=== PATIENT | male | born 1975 | race Caucasian/White ===

== ENCOUNTER 2021-09-21 12:56 | Emergency (ER) | payer BC, SELFPAY ==
--- NOTE | ~2021-09-21 | XR_ITS ---
XR tibia fibula LT 2V DATE: 09/21/2021 13:30 INDICATION: Left ankle laceration; evaluate for foreign body. TECHNIQUE: AP and lateral views COMPARISON: None FINDINGS: Distal lateral lower leg soft tissue laceration, with evidence of a faint approximately 1 x 3 mm radiopaque possible foreign body noted on AP view, not definitely localized on the lateral view , possibly due to superimposed bony structures. No fracture or dislocation, periosteal reaction or bone destruction. Minimal periarticular spurring of the patella. IMPRESSION: Distal lateral lower leg soft tissue laceration with possible minimally radiopaque approx imate 1 x 3 mm foreign body Reviewed, dictated and finalized at location A. IMPRESSION: Distal lateral lower leg soft tissue laceration with possible minim ally radiopaque approximate 1 x 3 mm foreign body
--- NOTE | ~2021-09-21 | XR_ITS ---
EXAM: XR ankle LT 2V DATE: 09/21/2021 16:46 HISTORY: irrigated laceration, r/o persistent FB . COMPARISON: Same date at 1:55 PM. FINDINGS/IMPRESSION: Soft tissue foreign body no longer visualized. No other interval change. Reviewed, dictated and finalized at location K.
--- NOTE | ~2021-09-21 | XR_ITS ---
XR ankle LT min 3V DATE: 09/21/2021 14:03 INDICATION: Left ankle laceration TECHNIQUE: 4 views COMPARISON: None FINDINGS: There is a soft tissue laceration at the distal lateral lower leg with an approximately 0.7 x 2 mm radiopaque foreign body. No fracture or dislocation of the ankle or disruption of the ankle mortise. No periosteal reaction or bone destruction. IMPRESSION: Soft tissue laceration and radiopaque foreign body of distal lateral lower leg Reviewed, dictated and finalized at location A. IMPRESSION: Soft tissue laceration and radiopaque foreign body of distal latera l lower leg
[2021-09-21 13:02] VITALS: BP 144/83; PULSE 103; RESP 18; TEMP 36.6; O2SAT 98
[2021-09-21 13:30] VITALS: BP 126/83; PULSE 83; RESP 16; O2SAT 97
--- NOTE | 2021-09-21 14:28 | ED.WOUNDLAC ---
HPI - Wound/Laceration General Chief Complaint: Wound/Laceration Stated Complaint: laceration to leg Time Seen by Provider: 09/21/21 13:44 Source: patient Mode of arrival: ambulatory Limitations: no limitations History of Present Illness HPI narrative: Patient is a 46 y/o male who presents to the ED with c/o laceration to his left lower leg. Patient reports he was helping a friend move some gym equipment when a glass mirror broke and a piece cut his left lower lateral leg. He sustained a large deep laceration. A few minor abrasions elsewhere, but no other injuries. No reported numbness/tingling, weakness. Able to ambulate but has pain with this. Tetanus status up-to-date. Related Data Allergies Allergy/AdvReac Type Severity Reaction Status Date / Time Penicillins Allergy Rash Verified 09/21/21 13:01 Review of Systems Review of Systems: CONSTITUTIONAL: Denies fever. SKIN: Reports laceration to L lower leg. NEUROLOGIC: Denies tingling, numbness, or weakness. All systems reviewed & are unremarkable except as noted in HPI and below PMFSH Past Medical History Medical History (Updated 09/21/21 @ 17:51 by Ting Youssef PA-C) No pertinent past medical history Surgical History Surgical History (Updated 09/21/21 @ 15:17 by Ting Youssef PA-C) No pertinent past surgical history Social History Social History (Updated 09/21/21 @ 15:17 by Ting Youssef PA-C) Smoking status: Current every day smoker Exam Narrative: GENERAL: Well appearing, well-nourished, non-toxic, in no acute distress. HEAD: Normocephalic, atraumatic. NECK: Supple. No adenopathy, no masses. RESPIRATORY: Airway patent, respirations nonlabored. CARDIOVASCULAR: Regular rate and rhythm without murmurs, rubs, or gallops. Pedal pulses 2+ and equal bilaterally. MUSCULOSKELETAL: Limited plantar flexion of L ankle due to laceration/pain. Approximately 8 cm flap laceration to lateral lower calf, approx 7 cm above lateral malleolus. No avulsed skin. Bleeding controlled at this time. Subcutaneous tissue and muscle exposed under laceration. Appears to be transverse laceration through fibularis brevis muscle - muscle visibly moves with dorsiflexion of foot - can visualize distal end of superior portion of cut muscle. No visible bone. Sharp and dull sensation intact along distribution of sural nerve and superficial fibular nerve, and in L foot. SKIN: Warm, dry, normal color. No rashes. NEURO: A&O X3. Speech clear. Cranial nerves II-XII grossly intact. Steady gait. No ataxic movements. PSYCHIATRIC: Appropriate mood and affect. Normal interaction. Course Consultations Consultation #1: Discussed case w/ Dr. Ye, Ortho line maintainer section. Advised cannot sew muscle back together. No other interventions needed necessarily at this time. Can close wound, update tetanus, abx, outpatient f/u. Date: 09/21/21 Time: 15:14 Vital Signs Vital signs: Vital Signs Temperature 97.8 F 09/21/21 13:02 Pulse Rate 103 H 09/21/21 13:02 Respiratory Rate 18 09/21/21 13:02 Blood Pressure 144/83 H 09/21/21 13:02 Pulse Oximetry 98 09/21/21 13:02 Temperature 97.8 F 09/21/21 13:02 Pulse Rate 83 09/21/21 13:30 Respiratory Rate 16 09/21/21 13:30 Blood Pressure 126/83 09/21/21 13:30 Pulse Oximetry 97 09/21/21 13:30 Procedures Laceration Laceration 1: Date: 09/21/21 Site: lower extremity Side (If applicable): left Description: linear and flap Depth: involves muscle layer Local Anesthetic: lidocaine 1% and with epi Pre-repair: wound explored and irrigated extensively ====== Skin Level ====== ====== Subcutaneous Layer ====== ====== Muscle Layer ====== ====== Tendon Layer ====== MDM - Wound/Laceration MDM Narrative Medical decision making narrative: Patient presented to ED with deep laceration to left lateral lower leg. Deep with the appearance of muscle involvement. Upon further ev
[2021-09-21] MEDS: HYDROcodone/acetaminophen (*CRX) 5-325 MG TABLET 1 TAB PO (18:42)
[2021-09-21] MEDS: CEPHALEXIN 500 MG CAPSULE PO (18:42)
== END 2021-09-21 18:58 | disposition home or self-care (01) ==
PROVIDERS: Emergency Provider Emergency Medicine
DX: S86.922A Laceration of unspecified muscle(s) and tendon(s) at lower leg level, left leg, initial encounter (principal); F17.200 Nicotine dependence, unspecified, uncomplicated; W25.XXXA Contact with sharp glass, initial encounter
CPT/HCPCS: 12005; 73590; 73600; 73610; 99284; A9270

== ENCOUNTER 2021-11-11 07:39 | Outpatient (CLI) | payer BC, SELFPAY ==
--- NOTE | ~2021-11-11 | MR_ITS ---
EXAMINATION: MR lower leg LT wo con DATE: 11/11/2021 09:42 INDICATION: Left lower leg pain post laceration to the lateral calf from 2 months prior. TECHNIQUE: Magnetic resonance imaging (MRI) of the mid to distal left lower leg was performed without intravenous contrast. A hosea was placed over the region of concern. Sequences included axial T1-michelle ghted FSE, axial T2-weighted FS FSE, coronal T1-weighted FSE, coronal fluid sensitive FSE STIR, sagit aaron T1-weighted FSE and sagittal fluid sensitive FSE STIR. COMPARISON: Radiographs dated 09/21/2021 FINDINGS: Bone alignment is normal with normal marrow signal no fracture or pathologic marrow replacing process . Joint spaces at the left ankle and visualized mid and hindfoot are normal. There is full-thickness tear of both the peroneus longus and brevis tendons with the distal tear margins located approximatel y 5 cm above the level of the tibiotalar joint line and with approximately 4-5 cm cephalad retraction of the proximal tear margins. This is located at the site of a deep laceration evident on the prior radiographs. There is also edema in the surrounding peroneus and brevis and longus musculature at thi s level with lax and disorganized appearance to the muscle fibers on the coronal imaging consistent w ith associated high-grade partial if not complete tear across the cross-sectional width of the muscle . There is prominent thickening of the tendons both proximal and distal to the tear margin. The visua lized portions of the remaining muscles and tendons at the left calf and mid and hindfoot remain norm al. IMPRESSION: 1. Full-thickness tears of the peroneus longus and brevis tendons with associated high-grade partial if not complete tears of the surrounding paranasal sinus and brevis muscles at the site of a prior re ported laceration. Reviewed, dictated and finalized at location A. IMPRESSION: 1. Full-thickness tears of the peroneus longus and brevis tendons with associat ed high-grade partial if not complete tears of the surrounding paranasal sinus and brevis muscles at the site of a prior reported laceration.
== END 2021-11-11 07:40 | disposition home or self-care (01) ==
PROVIDERS: PCP Physician Assistant; Visit Provider Orthopaedic Surgery
DX: S86.812A Strain of other muscle(s) and tendon(s) at lower leg level, left leg, initial encounter (principal); X58.XXXA Exposure to other specified factors, initial encounter
CPT/HCPCS: 73718